=== PATIENT | female | born 1965 | race Caucasian/White ===

== ENCOUNTER 2016-11-04 07:19 | Emergency (ER) | payer BC, OTHER ==
[2016-11-04] MEDS ORDERED: GI Cocktail Oral Solution 30 ML PO ONE (07:38)
--- NOTE | 2016-11-04 07:58 | EDM.PDOC ---
[id number] CHEST PAIN Time Seen by Provider: 11/04/16 07:38 Source of Information: Reports: Patient History Limitations: Reports: No limitations - History of Present Illness INITIAL COMMENTS - FREE TEXT/NARRATIVE: Patient presents to the ED with complaints of chest pain. She was tightening a bolt at work([employer]), when she experienced pain to the left medial sternum that was sharp, stabbing in nature and lasting only a few seconds. This happened on two separate occasions. 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 She did not lose consciousness during this episode. She is a former smoker. States she smoked for approximately 20 years at [employer]. Family history includes mother with triple CABG in her 60's, father with valve replacement surgery. She denies HTN , diabetes, lung or kidney issues. States she does not regularly follow a provider. She does not take medications. No history of prior KS or CVA. Has bursitis to her left hip. No recent illness or contact with anyone that has been ill. States she has had migraines in the past, none for a few years. Describes her aura as eye pressure. She does complain of a headache this morning. She states chest pain started at 0700. No current chest pain. No complaints of SOB, fever, chills, diaphoresis, nausea or vomiting. No unilateral weakness, numbness, or tingling. Speech is intact. No facial drooping. Symptom Onset Date: 11/04/16 Symptom Onset Time: 07:00 Timing/Duration: Reports: Sudden onset Severity: mild Location, General: Reports: chest Quality: Reports: Sharp, Stabbing Context, General: Reports: Activity Associated Symptoms (General): Reports: chest pain - Related Data Allergies/ADRs: Allergies Allergy/AdvReac Type Severity Reaction Status Date / Time acetaminophen [From Tylox] Allergy Itching Verified 11/04/16 07:51 oxycodone [From Tylox] Allergy Itching Verified 11/04/16 07:51 Home Meds: Home Meds Gluc 2KCl/Chondr/Chris Hy/Hy Ac [Glucosamine & Chondroitin Cap] 3 tab DAILY 11/04 [History] SUMAtriptan [Imitrex] 50 mg ASDIRECTED PRN 11/04/16 [History] ED ROS GENERAL - Review of Systems Review Of Systems: See Below ED EXAM, GENERAL - Physical Exam Exam: See Below Exam Limited By: No limitations General Appearance: alert, WD/WN, no apparent distress Eye Exam: bilateral eye: EOMI, PERRL Ears: normal TMs Nose: normal inspection, normal mucosa Throat/Mouth: Normal inspection, Normal oropharynx Head: atraumatic, normocephalic Neck: normal inspection, supple Respiratory/Chest: no respiratory distress, lungs clear, normal breath sounds, no accessory muscle use, chest non-tender Cardiovascular: normal peripheral pulses, regular rate, rhythm, no edema, no gallop, no murmur, no rub Peripheral Pulses: 2+: posterior tibial (L), posterior tibial (R), dorsalis pedis (L), dorsalis pedis (R) GI/Abdominal: normal bowel sounds, soft, non tender, no organomegaly, no distention, no abnormal bruit, no mass Back Exam: normal inspection, full range of motion Extremities: normal inspection, normal range of motion, non-tender, no pedal edema, normal capillary refill Neurological: alert, oriented, CN II-XII intact, normal cognition, normal gait, normal reflexes, no motor/sensory deficits Psychiatric: normal affect, normal mood Skin Exam: Warm, Dry, Intact Lymphatic: no adenopathy EKG INTERPRETATION EKG Date: 11/04/16 Time: 07:23 Rhythm: NSR Rate (beats/min): 62 [place]: normal P-wave: present QRS: normal ST-T: normal QT: normal Comparison: NA - no prior EKG EKG Interpretation Comments: sinus rhythm possible right ventricular conduction delay borderline ecg Course - Vital Signs Last Recorded V/S: Last Vital Signs Temp 35.5 C 11/04/16 07:20 Pulse 60 11/04/16 08:22 Resp 16 11/04/16 07:20 BP 144/89 H 11/04/16 08:22 Pulse Ox 95 11/04/16 07:20 - Orders/Labs/Meds Orders: Active Orders 24 hr Category Date Time Status EKG Documentation Completion [RC] ROUTINE Care 11/04/16 07:38 Active Chest 2V [CR] Stat Exams 11/04/16 07:39 Taken Labs: Laboratory Tests 11/04/16 11/04/16 11/04/16 Range/Units 07:50 07:50 07:50 WBC 6.8 (4.0-10.0) x10^3/uL RBC 4.72 (4.00-5.50) x10^6/uL Hgb 13.6 (12.0-16.0) g/dL Hct 40.7 (33.0-47.0) % MCV 86.2 (78.0-93.0) fL MCH 28.8 (26.0-32.0) pg MCHC 33.4 (32.0-36.0) g/dL RDW Coeff of [place] 16.5 H (10.0-15.0) % Plt Count 269 (130-400) x10^3/uL Neut % (Auto) 47.3 L (50.0-80.0) % Lymph % (Auto) 32.8 (25.0-50.0) % [place] % (Auto) 7.4 (2.0-11.0) % Eos % (Auto) 11.8 H (0.0-4.0) % Baso % (Auto) 0.7 (0.2-1.2) % PT 9.9 L (10.0-12.8) SEC INR 0.9 L (2.0-3.5) Sodium 141 (136-145) mmol/L Potassium 4.1 (3.5-5.1) mmol/L Chloride 105 (98-107) mmol/L Carbon Dioxide 27 (21-32) mmol/L BUN 25 H (7-18) mg/dL Creatinine 0.8 (0.55-1.02) mg/dL Est Cr Clr Drug Dosing 66.54 mL/min Estimated GFR (MDRD) > 60 Glucose 102 (74-106) mg/dL Calcium 8.8 (8.5-10.1) mg/dL Corrected Calcium 8.88 (8.5-10.1) mg/dL Total Bilirubin 0.6 (0.2-1.0) mg/dL AST 25 (15-37) U/L ALT 41 (14-59) U/L Alkaline Phosphatase 78 (46-116) U/L Creatine Kinase 136 (26-192) U/L Creatine Kinase Index 1.3 (0.0-4.0) % CK-MB (CK-2) 1.7 (0.0-3.6) ng/mL POC Troponin I (0.00-0.08) ng/mL B-Natriuretic Peptide 124 (<=125) pg/mL Total Protein 7.4 (6.4-8.2) g/dL Albumin 3.9 (3.4-5.0) g/dL Globulin 3.5 Albumin/Globulin Ratio 1.11 TSH, Ultra Sensitive (0.358-3.74) uIU/mL 11/04/16 11/04/16 Range/Units 07:50 07:56 WBC (4.0-10.0) x10^3/uL RBC (4.00-5.50) x10^6/uL Hgb (12.0-16.0) g/dL Hct (33.0-47.0) % MCV (78.0-93.0) fL MCH (26.0-32.0) pg MCHC (32.0-36.0) g/dL RDW Coeff of [place] (10.0-15.0) % Plt Count (130-400) x10^3/uL Neut % (Auto) (50.0-80.0) % Lymph % (Auto) (25.0-50.0) % [place] % (Auto) (2.0-11.0) % Eos % (Auto) (0.0-4.0) % Baso % (Auto) (0.2-1.2) % PT (10.0-12.8) SEC INR (2.0-3.5) Sodium (136-145) mmol/L Potassium (3.5-5.1) mmol/L Chloride (98-107) mmol/L Carbon Dioxide (21-32) mmol/L BUN (7-18) mg/dL Creatinine (0.55-1.02) mg/dL Est Cr Clr Drug Dosing mL/min Estimated GFR (MDRD) Glucose (74-106) mg/dL Calcium (8.5-10.1) mg/dL Corrected Calcium (8.5-10.1) mg/dL Total Bilirubin (0.2-1.0) mg/dL AST (15-37) U/L ALT (14-59) U/L Alkaline Phosphatase (46-116) U/L Creatine Kinase (26-192) U/L Creatine Kinase Index (0.0-4.0) % CK-MB (CK-2) (0.0-3.6) ng/mL POC Troponin I 0.00 (0.00-0.08) ng/mL B-Natriuretic Peptide (<=125) pg/mL Total Protein (6.4-8.2) g/dL Albumin (3.4-5.0) g/dL Globulin Albumin/Globulin Ratio TSH, Ultra Sensitive 2.599 (0.358-3.74) uIU/mL Meds: Medications Discontinued Medications Generic Name Dose Route Start Last Admin Trade Name Freq PRN Reason Stop Dose Admin Al Hydroxide/Mg Hydroxide 30 ml 11/04/16 07:38 11/04/16 08:20 Gi Cocktail PO 11/04/16 07:39 30 ml ONETIME ONE Administration Aspirin 324 mg 11/04/16 08:02 11/04/16 07:30 Aspirin PO 11/04/16 08:03 324 mg ONETIME ONE Administration - Re-Assessments/Exams Free Text/Narrative Re-Assessment/Exam: 11/04/16 08:00 EKG ordered and interpreted to be normal Labs ordered and obtained. Chest X-Ray obtained. 11/04/16 08:50 Negative chest x-ray Departure - Departure Time of Disposition: 09:25 Disposition: Home, Self-Care 01 Clinical Impression: Atypical chest pain Instructions: Costochondritis, [id number], Nonspecific Chest Pain, Easy-to- Read Referrals: Karla Tellez, [Primary Care Provider] - Forms: ED Department Discharge Additional Instructions: All of your labs, x-ray, and EKG are normal and show no heart involvement or damage. Schedule an appointment with a primary care provider as needed. This pain is likely caused by costochondritis, or by muscles within your chest wall. Take tylenol, aleve, or aspirin as needed. If you develop sudden chest pain lasting several minutes, shortness of breath, or numbness/tingling in your jaw or arms, return to the ED as soon as possible. Please call us with any questions or concerns. - My Orders Last 24 Hours: My Active Orders 11/04/16 07:38 EKG Documentation Completion [RC] ROUTINE 11/04/16 07:39 Chest 2V [CR] Stat - Assessment/Plan Last 24 Hours: My Active Orders 11/04/16 07:38 EKG Documentation Completion [RC] ROUTINE 11/04/16 07:39 Chest 2V [CR] Stat
[2016-11-04] MEDS ORDERED: Aspirin 81 MG Tab.Chew PO ONE (08:02)
[2016-11-04 08:28] LABS: CHLORIDE,CL 105 mmol/L (98-107); SODIUM,NA 141 mmol/L (136-145)
[2016-11-04 10:03] VITALS: BP 140/91
== END 2016-11-04 09:20 | disposition home or self-care (01) ==
LOC: VM.ED 07:19
DX: R07.89 Other chest pain (principal); Z88.5 Allergy status to narcotic agent; Z79.899 Other long term (current) drug therapy
CPT/HCPCS: 36415; 71020; 80053; 82550; 82553; 83880; 84443; 84484; 85025; 85610; 93005; 99285; A9270